=== PATIENT | female | born 1995 | race Two or more races ===

== ENCOUNTER 2020-06-22 15:23 | Emergency (ER) | payer OTHER ==
[~2020-06-22] VITALS: Ht 170.2 cm; Wt 143.0 kg
[2020-06-22] MEDS ORDERED: IBUPROFEN 600MG TABLET PO ONE (16:15)
[2020-06-22] MEDS ORDERED: BACITRACIN ZINC OINT UDPKT TOP ONE (16:15)
[2020-06-22 16:32] VITALS: BP 138/76
== END 2020-06-22 16:33 | disposition home or self-care (01) ==
LOC: ER 15:23
DX: S20.319A Abrasion of unspecified front wall of thorax, initial encounter (principal); V43.52XA Car driver injured in collision with other type car in traffic accident, initial encounter; Y93.89 Activity, other specified; Y92.488 Other paved roadways as the place of occurrence of the external cause
CPT/HCPCS: 99283